=== PATIENT | female | born 1965 | race African-American/Black ===

== ENCOUNTER 2018-07-07 00:20 | Emergency (ER) | payer BC, OTHER ==
[~2018-07-07] VITALS: Ht 165.1 cm; Wt 60.0 kg
[2018-07-07 00:25] VITALS: BP 126/80; PULSE 98; RESP 20; Ht 165.1 cm; Wt 60.0 kg
--- NOTE | 2018-07-15 23:13 | ERD ---
ER Documentation Chief Complaint Chief Complaint N/V HPI This is a 53-year-old female presents for evaluation of nausea, and stated initial chief complaint of abdominal pain. However this provider the patient states she has absolutely no abdominal pain, she states that she felt nauseous and had tingling diffusely to her bilateral extremities after taking one Xanax pill instead of the Mobic. She denies any chest pain or shortness of breath, she denies any suicidal ideations, she did not ingest any other substances. ROS All systems reviewed and are negative except as per history of present illness. Allergies Allergies: Coded Allergies: No Known Allergy (Unverified , 03/08/12) PMhx/Soc History of Surgery: Yes (LIPOSUCTION, ABORTIONS) Anesthesia Reaction: No Hx Neurological Disorder: No Hx Respiratory Disorders: No Hx Cardiac Disorders: No Hx Psychiatric Problems: No Hx Miscellaneous Medical Probl: No Hx Alcohol Use: No Hx Substance Use: No Hx Tobacco Use: No Smoking Status: Unknown if ever smoked Physical Exam Physical Exam Const: Well-appearing, nontoxic Head: Atraumatic Eyes: Normal Conjunctiva ENT: Normal External Ears, Nose and Mouth. Neck: Full range of motion. No meningismus. Resp: Clear to auscultation bilaterally Cardio: Regular rate and rhythm, no murmurs Abd: Soft, non tender, non distended. Normal bowel sounds Skin: No petechiae or rashes Back: No midline or flank tenderness Ext: No cyanosis, or edema Neur: Awake and alert Psych: Normal Mood and Affect Results 24 hrs Laboratory Tests Test 07/07/18 02:51 Bedside Glucose 100 mg/dL Procedures/MDM Is a 53-year-old female presents for evaluation of accidental ingestion. Exam reveals a very well-appearing nontoxic female in no acute distress, her symptoms have appear to have completely self resolved, at this point I do not suspect any toxic overdose, I do not suspect surgical abdomen her glucose was within normal limits, I discussed the findings with patient who felt very comfortable with discharge plan of care, at discharge she was in no acute distress. Departure Diagnosis: Primary Impression: Accidental ingestion of substance Condition: Stable Patient Instructions: Gastroenteritis, Non-Infectious (Child) (Adult) Additional Instructions: Thank you for for coming to [facility] for your care today. Please ask your nurse or provider if you have questions about your care today and do not leave until all your questions have been answered. You may also use motrin and tylenol as needed for fever and/or pain unless instructed otherwise by your provider or nurse. Indications for more urgent follow-up have been discussed, but you may return to the Emergency Department at ANY time for any worrisome or worsening symptoms. As we discussed, your symptoms may have been a result of taking a pill by accident, additionally, food poisoning is also consideration, which is called gastroenteritis, we provided you instructions on this if you experience any symptoms. BIJAN MACK MD Jul 15, 2018 23:13
== END 2018-07-07 04:11 | disposition home or self-care (01) ==
LOC: E/R 00:20
DX: T42.4X1A Poisoning by benzodiazepines, accidental (unintentional), initial encounter (principal)
CPT/HCPCS: 82962; 99282